=== PATIENT | male | born 1970 | race Hispanic/Latino ===

== ENCOUNTER 2020-08-24 09:07 | Day surgery (SDC) | payer BC ==
[2020-08-23 16:49] LABS: Basophils % 0.6 % (0-1.3); Hematocrit 40.1 % (39.6-49.0); MPV 7.2 fL (7.6-11.3)
[2020-08-23 16:59] LABS: Potassium 3.4 mmol/L (3.5-5.1)
--- NOTE | 2020-08-23 17:00 | RAD REPORT ---
EXAM DESCRIPTION: RAD - Chest Pa And Lat (2 Views) - 08/23/2020 4:36 pm CLINICAL HISTORY: PRE OP, pending gastric vascular surgery COMPARISON: September 2018 TECHNIQUE: Frontal and lateral views of the chest were obtained. FINDINGS: The lungs are clear. Interstitial markings match comparison. Heart size is normal and vicki tral vasculature is within normal limits. No pleural effusion or pneumothorax seen. No acute bony f inding noted. No aortic abnormality. IMPRESSION: No acute cardiopulmonary process. No significant change from comparison.
[2020-08-24] MEDS ORDERED: Ringers Lactate 1,000 ML IV ONE (09:38)
--- OUTSIDE RECORDS SUMMARY | 2020-08-24 09:42 | XMS REPORT | Summary of Care ---
:1970 Author Organization [facility] - [facility] Address [address] [place] [id number] Care Team Providers Name Role Phone Pcp, Does Not Have A Primary Care Provider Reason for Visit Reason Comments LAB covid testing- pre op Encounter Details Date Type Department Care Team Description 08/09/2020 Laboratory Only [facility] Family David Ramirez FNP [address] [place] [address] [phone] Exposure to COVID-19 virus (Primary Dx); Medicine - [facility], Adc Fam Pob I Pre-op testing [address] [place] [address] [phone] Allergies No Known Allergiesdocumented as of this encounter (statuses as of 08/09/2020) Medications Medication Sig Dispensed Refills Start Date End Date Status HYDROcodone-acetaminop Take 1 tablet by 20 tablet 0 03/11/2018 Active hen 10-325 mg tablet mouth every 6 (six) hours as needed for Pain (scale 7-10). ibuprofen 800 mg Take 1 tablet by 21 tablet 0 03/11/2018 Active tablet mouth every 8 (eight) hours as needed for Alternate with [place] for pain scale 1-3. acetaminophen-codeine Take 1 tablet by 50 tablet 0 03/15/2018 Active (TYLENOL-CODEINE #3) mouth every 6 300-30 mg tablet (six) hours as needed for Pain (scale 4-6). losartan 50 mg tablet 0 01/11/2018 Active metoprolol succinate 0 01/11/2018 Active XL 25 mg 24 hr tablet proMETHazine 25 mg Take 1 tablet by 20 tablet 0 03/18/2018 Active tablet mouth every 6 (six) hours as needed for Nausea and Vomiting (N/V). documented as of this encounter (statuses as of 08/09/2020) Active Problems Not on filedocumented as of this encounter (statuses as of 08/09/2020) Social History Tobacco Use Types Packs/Day Years Used Date Never Smoker Smokeless Tobacco: Never Used Sex Assigned at Date Recorded Not on file COVID-19 Exposure Response Date Recorded In the last month, have you been in contact with No / Unsure 08/09/2020 2:18 PM CDT someone who was confirmed or suspected to have Coronavirus / COVID-19? documented as of this encounter Last Filed Vital Signs Not on filedocumented in this encounter Nursing Notes Aruna Cruz MA - 08/09/2020 2:15 PM CDTPedtamir Garcia is a 49 year old male here for COVID Screening with a Nasopharyngeal Swab All droplet and contact precautions taken with appropriate PPE worn while interacting with patient. ? Goggles ? N95 Mask ? Gloves ? Gown Patient educated on plan of care for visit, swabbing technique, risks and benefits of test and length of time to receive results. Verbal consent obtained to perform test. CDC Fact Sheet for Patients nCoV Diagnostic Panel dated 01/11/2020 and Factsheet What to Do if Sick with COVID 19 12/22/19 provided. Patient swabbed per appropriate nasopharyngeal technique, and patient tolerated well. Patient was discharged from the testing clinic in stable condition. Aruna Perea MA 08/09/2020 2:19 PM Bilate nares swabbed during COVID19 nasopharyngeal swab. documented in this encounter Plan of Treatment Name Type Priority Associated Diagnoses Order S chedule COVID-19 (PCR MOLECULAR LAB Routine Exposure to COVID -19 Expected: 08/09/2020, TESTING) virus Expires: 2020 COVID-19 (ID NOW RAPID LAB Routine Pre-op testing Exp ected: 08/09/2020, TESTING) Expires: 2020 Health Maintenance Due Date Last Done Comments Depression Screening 1984 DTaP,Tdap,and Td Vaccines (1 - 1991 Tdap) INFLUENZA VACCINE (#1) 2020 Colorectal Cancer Screening 2022 PNEUMOCOCCAL 0-64 YEARS COMBINED Aged Out No longer eligible based on SERIES patient's age to complete this topic documented as of this encounter Results Not on filedocumented in this encounter Visit Diagnoses Diagnosis Exposure to COVID-19 virus - Primary Pre-op testing Preoperative examination, unspecified documented in this encounter Additional Health Concerns Infection Onset Date Last Indicated Resolved Time COVID-19 Rule Out 08/09/2020 08/09/2020 documented as of this encounter Insurance Payer Benefit Plan Subscriber ID Effective Dates Phone Address Type / Group [id number] [employer] [phone] [address] PPO/POS [place] [id number] [place] [address] [phone] [id number] (Work) documented as of this encounter
--- OUTSIDE RECORDS SUMMARY | 2020-08-24 09:42 | XMS REPORT | Continuity of Care Document ---
:1970 Author Organization [facility] t Address [address] [place] [address] Care Team Providers Name Role Phone Lab, Fam Pob I Attending Clinician Unavailable Nurse, Urgent Attending Clinician Unavailable Doctor Unassigned, Name Attending Clinician Unavailable Problems This patient has no known problems. Allergies, Adverse Reactions, Alerts This patient has no known allergies or adverse reactions. Medications This patient has no known medications. Procedures This patient has no known procedures. Encounters Start End Encounter Admission Attending Care Care Encounter Source Date/Time Date/Time Type Type Clinicians Facility Department ID 2020-08-09 2020-08-09 Laboratory Lab, [facility] [id number] 14:03:33 14:23:33 Only Fam Pob I Health [id number] [place] [id number] [facility] [phone] [address] 2020-05-31 2020-05-31 Letter Nurse, Hernan [facility] [id number] 00:00:00 00:00:00 (Out) Urgent HEALTH [id number] [facility] [phone] Primary & 370 Specialty Care 2020-05-30 2020-05-30 Laboratory Lab, [facility] [id number] 14:04:24 14:24:24 Only Fam Pob I Health [id number] [place] [id number] [facility] [phone] nal [address] 2020-05-30 2020-05-30 Letter Doctor YEVGENIY [id number] 00:00:00 00:00:00 (Out) Unassigned, DAMIAN [id number] [place] [facility] [id number] [phone] 044 Results This patient has no known results.
[2020-08-24] MEDS ORDERED: CEFOXITIN/SWI 1gm 1 GM/10 ML SYR ONE (09:58)
--- NOTE | 2020-08-24 10:09 | EKG ---
Test Date: 2020-08-23 Test Time: 16:15:51 Fire Controlman: JAZMYNE MEASUREMENT RESULTS: Intervals: Rate: 63 [place]: 144 QRSD: 102 QT: 396 QTc: 405 [place]: P: 33 [place]: 144 QRS: 73 T: 41 INTERPRETIVE STATEMENTS: Normal sinus rhythm Normal ECG Compared to ECG 10/25/2018 14:18:49 Ventricular premature complex(es) no longer present Left ventricular hypertrophy no longer present Myocardial infarct finding no longer present Electronically Signed On 08-24-20 10:06:45 CDT by Lisandro Kothari
[2020-08-24] MEDS: CEFOXITIN/SWI 1gm 1 GM/10 ML SYR ONE ×2 (10:12→10:50)
[2020-08-24] MEDS ORDERED: propofoL 200 MG/20 ML VIAL IV ONE (10:24)
[2020-08-24] MEDS ORDERED: LIDOCAINE 1% MPF 5 ML VIAL ONE (10:25)
[2020-08-24] MEDS ORDERED: FENTANYL CITR 100 MCG/2 ML ONE (10:25)
[2020-08-24] MEDS ORDERED: MIDAZOLAM HCL 2 MG/2 ML INJ ONE (10:25)
[2020-08-24] MEDS ORDERED: KETOROLAC 30 MG/ML INJ ONE (11:13)
[2020-08-24] MEDS ORDERED: ONDANSETRON 4 MG/2 ML VIAL ONE (11:13)
[2020-08-24] MEDS ORDERED: dexAMETHasone 4 MG/ML VIAL ONE (11:14)
[2020-08-24] MEDS: HYDROMORPHONE HCL 1 MG/ML INJ ONE ×2 (11:48→11:58)
--- NOTE | 2020-08-24 12:23 | OP ---
Date of Procedure: 08/24/2020 Surgeon: Syd Keith MD Dynamite Reclaimer: None. Preoperative Diagnosis: Symptomatic hemorrhoids. Postoperative Diagnosis: Symptomatic hemorrhoids X2 with thrombosis. Procedure: Exam under anesthesia, rigid proctoscopy, hemorrhoidectomy x2. Estimated Blood Loss: Minimal. Specimen: Right lateral thrombosed hemorrhoids, posterior midline thrombosed hemorrhoids. Findings: As above. Anesthesia: General. Complications: None. The patient tolerated the procedure in stable condition, taken to Recovery in good general condition. Procedure In Detail: Patient was brought to the OR and placed in supine position and general anesthe ankur was begun. Patient was prepped and draped in the usual sterile fashion in lithotomy position. E xam under anesthesia revealed 2 thrombosed hemorrhoids, 1 in the right lateral and 1 in the posterior midline. Rigid proctoscopy was performed. No other evidence of disease identified. Harmonic scalp el was utilized to excise both hemorrhoids and sent to Pathology after being appropriately labeled. Marcaine 0.5% infiltrated locally for postop pain control. Cautery was used to control any bleeding and then rectal pack consisting of Gel-Foam, Surgicel dressing was placed. Sterile dressing was appl ied. Patient was awakened and taken to Recovery in good general condition. Discharge Note: The patient will go to Day Surgery and home when stable. Disposition: Home. Condition: Stable. Discharge Instructions: Resume home medications and diet. Activity as tolerated. No heavy lifting. Sitz baths q.i.d. High-fiber diet. Procto-HC 2.5% to anus b.i.d. Colace 100 mg p.o. b.i.d., Metam ucil 1 tablespoon p.o. t.i.d. Tylenol No. 3 one tablet p.o. q.4 p.r.n. pain. Follow up in my office in 2 weeks. Call for appointment. FRED/DEEPTI Voice ID: [id number] Report ID: [id number]
[2020-08-24 12:27] VITALS: O2SAT 98
[2020-08-24] MEDS ORDERED: HYDROCODONE/APAP 7.5/325 MG TAB ONE (12:28)
[2020-08-24 13:24] VITALS: BP 147/98; TEMP 97.4
== END 2020-08-24 13:15 | disposition home or self-care (01) ==
LOC: OR 09:07
PROVIDERS: ATTEND Surgery
PROC: 0DJD8ZZ Inspection of Lower Intestinal Tract, Via Natural or Artificial Opening Endoscopic (ICD-10-PCS; 2020-08-24)
PROC: 06BY0ZC Excision of Hemorrhoidal Plexus, Open Approach (ICD-10-PCS; principal; 2020-08-24 10:00)
DX: K64.5 Perianal venous thrombosis (principal); Z20.828 Contact with and (suspected) exposure to other viral communicable diseases
CPT/HCPCS: 93005; 85025; 80048; 36415; 88304; 71046; 46083 ×2; 45300; U0002; J2704; J1100; J2250; J3010; J1170; J7120; J2405